=== PATIENT | female | born 1950 | race Two or more races ===

== ENCOUNTER 2025-04-21 16:30 | Emergency (ER) | payer OTHER ==
[~2025-04-21] VITALS: Ht 160 cm; Wt 80.7 kg
--- NOTE | 2025-04-21 17:16 | DVH ---
CLINICAL HISTORY: fall TECHNIQUE: Helical scanning was performed of the head from the skull base to the vertex. Multiplanar reconstructions were performed. This exam was performed according to our departmental dose optimizat ion program. Up-to-date CT equipment and radiation dose reduction techniques are utilized as appropri ate. CTDI 65 DLP 1289 COMPARISON: CT MAXILLOFACIAL WITHOUT on DOS: 04/21/25 FINDINGS: There is no evidence for acute intracranial hemorrhage, acute ischemic changes, mass, mass effect, or extra-axial fluid collection. There is no hydrocephalus or midline shift. There is no effacement of the cerebral sulci and basal subarachnoid cisterns. The ferraro-white matter differentiation is well oren ntained. There are cluster of nonspecific calcifications at the left mid and inferior cerebellar hemisphere. The imaged paranasal sinuses are clear. There has been bilateral cataract extraction. IMPRESSION: NO ACUTE INTRACRANIAL ABNORMALITY SEEN.
--- NOTE | 2025-04-21 17:31 | DVH ---
CT MAXILLOFACIAL WITHOUT Indication: fall EXAM DATE: 04/21/2025 04:41 PM COMPARISON: None TECHNIQUE: CT of the maxillofacial bones without intravenous contrast. RADIATION DOSE: CTDIvol: 66.97 mGy, DLP: 1313.4 mGy*cm FINDINGS: Mastoids well pneumatized. Paranasal sinuses are well pneumatized. No facial region fracture. Hyperostosis frontalis. IMPRESSION: No facial region fracture.
[2025-04-21 17:58] VITALS: BP 168/59; PULSE 62; RESP 16; TEMP 98.6; O2SAT 97
--- NOTE | 2025-04-22 11:21 | ED.PDOC ---
Luli. trauma (HPI) HPI Comments HPI: This is a 75 year old female presenting to the ED with chief complaint of fall injury. Patient reports that she had went to her room after walking upstairs in her home earlier today, felt lightheaded, then her legs gave out and she fell, hitting the left side of her face. Patient relays that she now has swelling and bruising to the left sided of her face. Patient denies any LOC, syncope, or further injury. Past Medical History: DM, HTN Past Surgical History: Cataract Surgery Social History: Denies smoking, ETOH, or drug use. Medications: Reviewed Allergies: NKDA HPI: Poor Historian. REVIEW OF SYSTEMS: CONSTITUTIONAL: Denies acute: fever, diaphoresis, chills, generalized weakness. HEAD: Denies acute: headache, photophobia Eyes: Denies acute: Double vision, vision loss, eye pain, eye discharge. EARS: Denies acute: tinnitus, hearing loss, ear discharge, ear pain, THROAT: Denies acute: sore throat, swelling, difficulty swallowing , pain with swallowing, change in voice. NECK: Denies acute: neck pain, neck swelling, stiff neck. HEART: Denies acute : chest pain, palpitations, LUNGS: Denies acute: SOB, wheezing, cough, hemoptysis ABDOMEN: Denies acute: abdominal pain, Nausea, Vomiting, diarrhea, melena , hematemesis, hematochezia SKIN: Denies acute: rash, redness, lesions, itchiness. EXTREMITIES: Denies acute: calf pain, numbness, tingling, weakness, denies pain in extremity. Denies acute: Low back pain. Neuro: Denies acute: focal neurological deficit, motor or sensory focal neurological deficit, tremors, seizure like activity, confusion, dizziness, change in mental status, loss of bowel or bladder function, cauda equina like symptoms. : Denies acute: dysuria, hematuria, flank pain, increase in urinary frequency. PSYCH: Denies acute: hallucination, suicidal ideation, homicidal ideation. FEMALE: Denies acute: abnormal vaginal bleeding, foul odor, unusual discharge. PHYSICAL EXAM: General: ----no----acute distress, awake and alert. Head: normocephalic, Neck: supple, trachea is midline, no swelling. Cervical spine: Palpation of the posterior midline of the cervical spine reveals no focal swelling, erythema, focal tenderness to palpation. Patient has normal range of motion. No titus sign, no raccoon sign, Throat: Normal phonation. Eyes:, no erythema, no purulent discharge, no proptosis, no icterus. Noted left eye periorbital soft tissue swelling involving the eyebrows and the zygomatic region. The area is tender to palpation. Heart: regular rate, regular rhythm, no significant murmur appreciated. Lungs: no apparent respiratory distress, Able to speak in full sentences. No wheezing, no rhonchi, no crackles. No stridors Clear to auscultation bilaterally. Abdomen: non tender to palpation, non distended, soft, no guarding, no rebound, + bowel sounds. Neuro: Awake, Alert, oriented to name, self, situation, follows commands GCS=15. Speech is normal. Skin: no petechia, no purpura, no cyanosis, non-pale, not jaundice. Lower extremities: --no - Pitting edema no deformity, no focal swelling, no calf TTP. Makes eye contact. moves all four extremities. Face: no apparent facial droop. Ambulating in the ED independently. No nystagmus. No nuchal rigidity, Kernig's sign, Brudzinski's sign, no meningeal signs. ED COURSE: DISCLAIMER: This medical document was created using an electronic medical record system with voice recognition software and computerized dictation system. Although this document has been carefully reviewed, there might still be some phonetic and typographical errors. Occasional wrong-word or "sound-alike" substitutions may have occurred due to the inherent limitations of voice recognition software. These areas are purely typographical due to imperfections of the software programs and do not reflect any compromise in the patient's medical care. Please read the chart carefully and recognize, using context, where these substitutions have occurred. Chief Complaint: Fall Injury Time Seen by MD: 17:36 Reviewed notes: Medications, Allergies Allergies: Coded Allergies: NO KNOWN ALLERGIES (Unverified , 04/21/25) Information Source: Patient, Relative Mode of Arrival: Ambulatory Was a procedure done? Was a procedure done?: No Differential Diagnosis Multiple Trauma: Closed Head Injury, Cardiac Injury, Fractures, Intraabdominal Injury, Pneumothorax, Cerebral Contusion, Pulmonary Contusion, Spine Injury, Tracheal Injury, Urological Injury, Vascular Injury, Abrasions, Contusion, Foreign Body, Hematoma, Laceration Neck Injury: Cervical Muscle Spasm, Cervical Sprain, Cervical Strain, Cervical Fracture, Spinal Cord Injury X-Ray, Labs, Meds, VS Vital Signs Date Time Temp Pulse Resp B/P (MAP) Pulse Ox O2 Delivery O2 Flow Rate FiO2 04/21/25 17:58 98.6 62 16 168/59 (95) 97 98.6 04/21/25 16:31 98.6 72 19 179/[address] [address] Ph: [phone] DIAGNOSTIC IMAGING Diagnostic Imaging Report : [id number] Signed PATIENT: JOVANNI ZEPEDACCT: [id number] UNIT: [id number] : 1950 LOC: ER ROOM / BED: / AGE / SEX: 75 / F ADM STATUS: REG ER SERVICE 38 ORDERING PHYSICIAN: BETO GONSALVES DO PROCEDURE(s): FAC2C - MAXILLOFACIAL WITHOUT REASON: fall ORDER NUMBER(s): [id number], ACCESSION NUMBER(s): [id number] CT MAXILLOFACIAL WITHOUT Indication: fall EXAM DATE: 04/21/2025 04:41 PM COMPARISON: None TECHNIQUE: CT of the maxillofacial bones without intravenous contrast. RADIATION DOSE: CTDIvol: 66.97 mGy, DLP: 1313.4 mGy*cm FINDINGS: Mastoids well pneumatized. Paranasal sinuses are well pneumatized. No facial region fracture. Hyperostosis frontalis. IMPRESSION: No facial region fracture. ATED BY: QUIRINO TIM MD DICTATED DATE/TIME: 04/21/251732 SIGNED BY: QUIRINO TIM MD SIGNED DATE/TIME: 04/21/251732 CC: [address] [address] Ph: [phone] DIAGNOSTIC IMAGING Diagnostic Imaging Report : [id number] Signed PATIENT: JOVANNI ZEPEDALAKESHALUZMARIACCT: [id number] UNIT: [id number] : 1950 LOC: ER ROOM / BED: / AGE / SEX: 75 / F ADM STATUS: REG ER SERVICE 1639 ORDERING PHYSICIAN: BETO GONSALVES DO PROCEDURE(s): HWOCT - HEAD WITHOUT CONTRAST REASON: fall ORDER NUMBER(s): [id number], ACCESSION NUMBER(s): [id number] CLINICAL HISTORY: fall TECHNIQUE: Helical scanning was performed of the head from the skull base to the vertex. Multiplanar reconstructions were performed. This exam was performed according to our departmental dose optimization program. Up-to-date CT equipment and radiation dose reduction techniques are utilized as appropriate. CTDI 65 DLP 1289 COMPARISON: CT MAXILLOFACIAL WITHOUT on DOS: 04/21/25 FINDINGS: There is no evidence for acute intracranial hemorrhage, acute ischemic changes, mass, mass effect, or extra-axial fluid collection. There is no hydrocephalus or midline shift. There is no effacement of the cerebral sulci and basal subarachnoid cisterns. The ferraro-white matter differentiation is well maintained. There are cluster of nonspecific calcifications at the left mid and inferior cer ebellar hemisphere. The imaged paranasal sinuses are clear. There has been bilateral cataract extraction. IMPRESSION: NO ACUTE INTRACRANIAL ABNORMALITY SEEN. ATED BY: YANELY ARRIOLA MD DICTATED DATE/TIME: 04/21/251712 SIGNED BY: YANELY ARRIOLA MD SIGNED DATE/TIME: 04/21/251712 CC: Time of 1ST Reevaluation: 18:36 Reevaluation 1ST: Improved Patient Education/Counseling: Diagnosis, Treatment Family Education/Counseling: Diagnosis, Treatment Comments MDM: patient presented with the above HPI.-fall/head injury----workup was initiated. patient was found with the above mentioned diagnosis. the following medications were ordered: please refer to order lists of meds and tests obtained by myself Dr. Gonsalves. Patient ED course and VS have been stabilized. Patient has been reassessed in the ED and remained in a stable condition. Pertinent incidental findings were discussed with the patient and/or family. Patient/family voices understanding and is agreeable with plan. Patient has been observed in the ED adequate length of time to insure improvement/stability. Escalation of care considered: Consideration of escalation to observation or admission Imaging studies were unremarkable. Patient was DISCHARGED home in a stable condition. All the reports of any imaging studies that were ordered by myself were reviewed by myself. Departure 1 Departure Time of Disposition: 17:41 Impression: Primary Impression: Closed head injury Additional Impressions: Contusion of face Fall Disposition: HOME / SELF CARE / HOMELESS Condition: Stable Additional Instructions: Additional instructions: Please read all instructions provided in this packet carefully. You MUST follow-up with your primary care/family doctor in 1 to 2 days. If you are unable to see your primary care/family doctor, please return to our emergency room for re-assessment and re-evaluation in 1 to 2 days. Return to the emergency room here in our facility or to the nearest ER [facility] if your symptoms change or worsen. CONSULTATIONS: you MUST Follow-up for consultation as soon as possible with: ----neurology and cardiology in 1-2 days. Please call for appointment. You MUST call the consultants office yourself to make an appointment. You may need to arrange that through your insurance and/or your primary/family doctor. If you are unable to see the [employer] consultant in 1 to 2 days, you must return to our emergency room (or any other ER of your choice) for re-assessment and re- evaluation. Adequate fluid hydration. Although you have been discharged from the Emergency Department, this does not mean that you have a "clean bill of health". No definitive diagnosis for your symptoms has been made today. It is possible that you are in the process of developing a serious illness. This is why you must return to the ED without fail if any new or worsening symptoms develop. Apply ice to the area to reduce inflammation. Take Tylenol as needed for pain control. Below is a copy of your radiological report for follow up: [place] [id number] Ph: [phone] DIAGNOSTIC IMAGING Diagnostic Imaging Report : [id number] Signed PATIENT: JOVANNI ZEPEDA ACCT: [id number] UNIT: [id number] : 1950 LOC: ER ROOM / BED: / AGE / SEX: 75 / F ADM STATUS: REG ER SERVICE 38 ORDERING PHYSICIAN: BETO GONSALVES DO PROCEDURE(s): FAC2C - MAXILLOFACIAL WITHOUT REASON: fall ORDER NUMBER(s): [id number], ACCESSION NUMBER(s): [id number] CT MAXILLOFACIAL WITHOUT Indication: fall EXAM DATE: 04/21/2025 04:41 PM COMPARISON: None TECHNIQUE: CT of the maxillofacial bones without intravenous contrast. RADIATION DOSE: CTDIvol: 66.97 mGy, DLP: 1313.4 mGy*cm FINDINGS: Mastoids well pneumatized. Paranasal sinuses are well pneumatized. No facial region fracture. Hyperostosis frontalis. IMPRESSION: No facial region fracture. ATED BY: QUIRINO TIM MD DICTATED DATE/TIME: 04/21/251732 SIGNED BY: QUIRINO TIM MD SIGNED DATE/TIME: 04/21/251732 CC: [place] [address] Ph: [phone] DIAGNOSTIC IMAGING Diagnostic Imaging Report : [id number] Signed PATIENT: JOVANNI ZEPEDA ACCT: [id number] UNIT: [id number] : 1950 LOC: ER ROOM / BED: / AGE / SEX: 75 / F ADM STATUS: REG ER SERVICE 38 ORDERING PHYSICIAN: BETO GONSALVES DO PROCEDURE(s): HWOCT - HEAD WITHOUT CONTRAST REASON: fall ORDER NUMBER(s): [id number], ACCESSION NUMBER(s): [id number] CLINICAL HISTORY: fall TECHNIQUE: Helical scanning was performed of the head from the skull base to the vertex. Multiplanar reconstructions were performed. This exam was performed according to our departmental dose optimization program. Up-to-date CT equipment and radiation dose reduction techniques are utilized as appropriate. CTDI 65 DLP 1289 COMPARISON: CT MAXILLOFACIAL WITHOUT on DOS: 04/21/25 FINDINGS: There is no evidence for acute intracranial hemorrhage, acute ischemic changes, mass, mass effect, or extra-axial fluid collection. There is no hydrocephalus or midline shift. There is no effacement of the cerebral sulci and basal subarachnoid cisterns. The ferraro-white matter differentiation is well maintained. There are cluster of nonspecific calcifications at the left mid and inferior cerebellar hemisphere. The imaged paranasal sinuses are clear. There has been bilateral cataract extraction. IMPRESSION: NO ACUTE INTRACRANIAL ABNORMALITY SEEN. ATED BY: YANELY ARRIOLA MD DICTATED DATE/TIME: 04/21/251712 SIGNED BY: YANELY ARRIOLA MD SIGNED DATE/TIME: 04/21/251712 CC: Discharged With: Self Critical Care Note Critical Care Time?: No I personally scribed for BETO GONSALVES DO ([email or web address]) on 04/21/25 at 17:38. Electronically submitted by Brodie Keller ([email or web address]). I personally scribed for BETO GONSALVES DO ([email or web address]) on 04/21/25 at 17:38. Electronically submitted by Brodie Keller ([email or web address]). I personally scribed for BETO GONSALVES DO ([email or web address]) on 04/21/25 at 17:47. Electronically submitted by Brodie Keller ([email or web address]). BETO GONSALVES DO Apr 21, 2025 17:38
== END 2025-04-21 18:05 | disposition home or self-care (01) ==
LOC: ER 16:34
DX: S00.83XA Contusion of other part of head, initial encounter (principal); S09.8XXA Other specified injuries of head, initial encounter; I10 Essential (primary) hypertension; E11.9 Type 2 diabetes mellitus without complications; Z98.49 Cataract extraction status, unspecified eye; W19.XXXA Unspecified fall, initial encounter; Y93.01 Activity, walking, marching and hiking; Y92.098 Other place in other non-institutional residence as the place of occurrence of the external cause; Y99.8 Other external cause status
CPT/HCPCS: 70450; 70486